=== PATIENT | female | born 1990 | race Caucasian/White ===

== ENCOUNTER 2019-09-25 20:52 | Outpatient (CLI) | payer MEDICAID, SELFPAY ==
[2019-09-25] VITALS (10 sets, daily range): BP systolic 0–123; BP diastolic 0–73; PULSE 87–112; RESP 16; TEMP 36.7; BMI 29.7
[2019-09-26 00:15] VITALS: BP 118/73; PULSE 83
[2019-09-26 00:34] VITALS: BP 118/73; PULSE 83; RESP 16; TEMP 36.8
== END 2019-09-26 00:34 | disposition home or self-care (01) ==
LOC: OPOB 20:55 → OBGYN 09-26 00:30 → OPOB 09-26 07:37
PROVIDERS: Family Provider Family Medicine; Visit Provider Family Medicine
DX: O26.899 Other specified pregnancy related conditions, unspecified trimester (principal); Z3A.00 Weeks of gestation of pregnancy not specified; R10.9 Unspecified abdominal pain
CPT/HCPCS: 59025; 99211

== ENCOUNTER 2019-10-08 05:32 | Inpatient (IN) | payer MEDICAID, SELFPAY ==
[2019-10-08] VITALS (24 sets, daily range): BP systolic 101–137; BP diastolic 57–105; PULSE 67–122; RESP 16–19; TEMP 36.5–37; O2SAT 96–97; BMI 29.7
[2019-10-08 02:48] LABS: Basophils % 0.4 %; Eosinophils # 0.2 10^3/uL (0.0-0.8); Eosinophils % 2.2 %; Hematocrit 37.3 % (37.0-47.0); Hemoglobin 12.6 g/dL (11.5-15.3); Lymphocytes % 20.3 %; Mean Corpuscular HGB Conc 33.8 g/dL (30.0-36.0); Mean Corpuscular Hemoglobin 29.9 pg (28.0-34.0); Mean Corpuscular Volume 88.4 fL (81-99); Mean Platelet Volume 10.4 fL (7.4-10.4); Monocytes # 0.8 10^3/uL (0.2-0.9); Neutrophils # 6.7 10^3/uL (1.8-7.7); Neutrophils % 68.6 %; Nucleated Red Blood Cells % 0 %; Platelet Count 232 10^3/cmm (130-400); Red Blood Count 4.22 10^6/uL (4.1-5.3); White Blood Count 9.8 10^3/uL (4.0-10.0)
--- NOTE | 2019-10-08 05:56 | PM.DELIVERY ---
 Delivery Note: Date of delivery: 10/08/19 Pre-Delivery Course: This is a 29-year-old G3, P2 at 40 weeks 2 days gestation who had routine care at [facility]. There were no complications during the . labs were unremarkable. GBS was negative. Delivery: The patient presented to labor and delivery in active labor with spontaneous rupture of membranes. There was clear fluid. She did not desire any pain management. Her labor progressed well on its own and she had a normal spontaneous vaginal delivery of a viable female infant weight 3975 g, 8 pounds 12 ounces. Apgars 8 and 9. The infant was delivered over an intact perineum and the mouth and nares were suctioned at delivery. There was a nuchal cord X2 that was reduced upon delivery. Infant was then placed on the mother's chest. The cord was clamped and cut. The placenta was delivered grossly intact and normal to inspection. There was a 1 degree perineal laceration that was very small and hemostatic, patient preferred not to suture. Post-Delivery Status: Mother and were doing well A&P Assessment and plan (1) Intrauterine : Presented to labor and delivery in active labor Status: Acute Code(s): Z34.90 - Encounter for supervision of normal , unspecified, unspecified trimester (2) Normal spontaneous vaginal delivery: Routine care Status: Acute Code(s): O80 - Encounter for full-term uncomplicated delivery Coding Level of Care Code Acute [employer] Manager for Chg Fwd Diagnoses Intrauterine Z34.90 Normal spontaneous vaginal delivery O80
[2019-10-08] MEDS: ketorolac 30 mg/mL INJ IVP (06:07)
--- NOTE | 2019-10-08 09:52 | PC.NURSE ---
Patient ambulated to room 203-2 without difficulty. Patient oriented to and proud parent pack explained. Patient reports her pain is 4/10 currently r/t cramping. Patient reports she does not want any additional medication for pain at this time. Will continue to monitor and follow up as needed.
[2019-10-08] MEDS: prenatal vitamin Capsule 1 CAP PO (09:54)
[2019-10-08] MEDS: docusate sodium 100 mg Capsule PO (09:55)
--- NOTE | 2019-10-08 13:56 | PC.NURSE ---
Patient refused fundal massage and vitals at this time.
--- NOTE | 2019-10-08 13:56 | PC.NURSE ---
Patient refused vital signs at this time.
[2019-10-08 18:37] LABS: Hematocrit 36.1 % (37.0-47.0); Mean Corpuscular HGB Conc 33.2 g/dL (30.0-36.0); Mean Corpuscular Hemoglobin 29.7 pg (28.0-34.0); Mean Corpuscular Volume 89.4 fL (81-99); Platelet Count 221 10^3/cmm (130-400); Red Blood Count 4.04 10^6/uL (4.1-5.3); White Blood Count 11.3 10^3/uL (4.0-10.0)
[2019-10-08] MEDS: benzocaine-menthol 78 gm Canister 1 SPRAY TOPICAL (22:08)
[2019-10-09 05:50] VITALS: BP 106/63; PULSE 102; RESP 16; TEMP 36.9
[2019-10-09 08:52] VITALS: BP 106/71; PULSE 76; RESP 15; TEMP 36.6
[2019-10-09] MEDS: lanolin oint 7 gm 1 APPLIC TOPICAL (08:54)
[2019-10-09] MEDS: prenatal vitamin Capsule 1 CAP PO (08:54)
[2019-10-09] MEDS: docusate sodium 100 mg Capsule PO (08:54)
--- NOTE | 2019-10-09 11:39 | P.DS_ITS ---
Discharge Providers [employer] AIDE TEACHER Date of Admission: 10/08/19 05:32 Date of Discharge: 10/09/19 Attending Provider at Admission: Katlyn Gao MD Attending Provider at Discharge: Katlyn Gao MD Diagnoses at Discharge Discharge Diagnosis (1) Intrauterine : Status: Resolved (2) Normal spontaneous vaginal delivery: Status: Acute Reason for Visit Reason for Visit: Reason For Visit: labor Hospital Course Hospital Course: This is a 29-year-old G3 now P3 who presented to labor and delivery in active labor. She had a normal spontaneous vaginal delivery of a viable female infant. After delivery mother and infant did well. On day #1 she was ambulating, tolerating a regular diet, breast-feeding well and requesting discharge home. Information Peripartum Data: Delivery Method: Vaginal Episiotomy description: None Physical Exam Const: COMMON NORMALS: alert and well nourished GENERAL APPEARANCE: cooperative HENMT: COMMON NORMALS: normocephalic HEAD & SCALP: normocephalic Eye: COMMON NORMALS: PERRL PUPIL: Yes PERRL Resp: COMMON NORMALS: normal respiratory effort and clear to auscultation bilaterally AUSCULTATION: clear to auscultation bilaterally Cardio: COMMON NORMALS: regular rate and regular rhythm RATE: regular rate RHYTHM: regular rhythm GI: COMMON NORMALS: soft to palpation (Fundus firm U- 2) PALPATION: Yes soft (Fundus firm U- 2), No tender, No guarding and No rigid Extremity: GENERAL: No calf tenderness Neuro: SENSORIUM/ORIENTATION: Yes alert Discharge Data Data Completed and Pending: Labs from last 24 hours 10/08/19 18:33 WBC 11.3 H RBC 4.04 L Hgb 12.0 Hct 36.1 L MCV 89.4 MCH 29.7 MCHC 33.2 RDW 14.0 Plt Count 221 MPV 10.0 Vitals: Last Vital Signs Temp 97.9 F 10/09/19 08:52 Pulse 76 10/09/19 08:52 Resp 15 10/09/19 08:52 BP 106/71 10/09/19 08:52 Pulse Ox 96 10/08/19 11:56 Discharge Plan Discharge Patient Disposition: Home, Self-Care Condition: Stable Prescriptions: No Action 28-800 mg-mcg Tablet 1 tab PO DAILY RF: 0 Referrals: Katlyn Gao MD [Family Provider] - 1 month Discharge Diet: Usual diet Activity Restrictions/Additional Instructions: NPV for 6 weeks Discharge Attestations [employer] AIDE TEACHER Time Spent in Discharge Care*: less than 30 min Coding Level of Care Code Acute Manager Interventional for Chg Fwd Diagnoses Intrauterine Z34.90 Normal spontaneous vaginal delivery O80
[2019-10-09 12:02] VITALS: BP 106/71; PULSE 76; RESP 15; TEMP 36.6
== END 2019-10-09 12:35 | disposition home or self-care (01) | DRG 807 ==
LOC: OBGYN 10-09 11:43 → OPOB 10-09 13:47
PROVIDERS: Admitting Provider Family Medicine; Family Provider Family Medicine; Visit Provider Family Medicine
DX: O69.81X0 Labor and delivery complicated by cord around neck, without compression, not applicable or unspecified (principal); Z37.0 Single live birth; Z3A.40 40 weeks gestation of pregnancy; O70.0 First degree perineal laceration during delivery
CPT/HCPCS: 12345; 36415; 59025; 59409; 83986; 85025; 85027; 96375; 99211; J1885

== ENCOUNTER 2022-02-08 03:28 | Inpatient (IN) | payer BC, MEDICAID, SELFPAY ==
[2022-02-08] VITALS (29 sets, daily range): BP systolic 94–135; BP diastolic 59–81; PULSE 59–89; RESP 14–18; TEMP 36.3–36.7; BMI 29.8
[2022-02-08 04:00] LABS: Basophils % 0.4 %; Eosinophils # 0.1 10^3/uL (0.0-0.8); Hematocrit 40.2 % (37.0-47.0); Hemoglobin 13.4 g/dL (11.5-15.3); Lymphocytes # 2.2 10^3/uL (0.8-4.8); Lymphocytes % 22.2 %; Mean Corpuscular HGB Conc 33.3 g/dL (30.0-36.0); Mean Corpuscular Hemoglobin 30.8 pg (28.0-34.0); Mean Corpuscular Volume 92.4 fl (81-99); Mean Platelet Volume 10.4 fL (7.4-10.4); Monocytes # 0.6 10^3/uL (0.2-0.9); Monocytes % 6.4 %; Neutrophils # 6.82 10^3/uL (1.8-7.7); Neutrophils % 69.3 %; Nucleated Red Blood Cells % 0 %; Platelet Count 229 10^3/cmm (130-400); Red Blood Count 4.35 10^6/uL (4.1-5.3); Red Cell Distribution Width 14.1 % (12.1-15.1); White Blood Count 9.9 10^3/uL (4.0-10.0)
[2022-02-08] MEDS: fentaNYL 50 mcg/mL INJ 2mL IVP (04:31)
[2022-02-08] MEDS: dextrose 5%-lactated ringers 1,000 ML 125 ML IV (04:33)
--- NOTE | 2022-02-08 05:24 | P.PCNOB_ITS ---
Delivery Note: Date of delivery: February 08, 2022 Pre-Delivery Course: She had routine care at [facility]. There were no complications during the . Delivery: This is a 31-year-old G4, P3 at 39 weeks 3 days gestation who presented in active labor. She did not desire an epidural. She made rapid change from 7 cm and not ruptured to complete and delivery with in a few minutes time. The infant was delivered by nursing before my arrival at the hospital. The infant was on the mother's chest. I clamped and cut the cord. The placenta was delivered grossly intact and normal to inspection. There was a very small first-degree perineal laceration that was not sutured. Mother and were doing well after delivery. weighed 7 pounds 4 ounces Apgars 7 and 9. Coding Level of Care Code Acute Help Desk Administrator for Amber Bansal
[2022-02-08] MEDS: docusate sodium 100 mg Capsule PO ×2 (08:05→17:37)
[2022-02-08] MEDS: prenatal vitamin Capsule 1 CAP PO (08:05)
[2022-02-08] MEDS: ibuprofen 800 mg tablet PO ×3 (08:05→21:21)
[2022-02-08 17:34] LABS: Hemoglobin 12.4 g/dL (11.5-15.3); Mean Corpuscular HGB Conc 32.6 g/dL (30.0-36.0); Mean Corpuscular Hemoglobin 30.7 pg (28.0-34.0); Mean Corpuscular Volume 94.1 fl (81-99); Mean Platelet Volume 10.1 fL (7.4-10.4); Platelet Count 213 10^3/cmm (130-400); Red Blood Count 4.04 10^6/uL (4.1-5.3); Red Cell Distribution Width 14.1 % (12.1-15.1); White Blood Count 10.8 10^3/uL (4.0-10.0)
[2022-02-09] MEDS: acetaminophen 325 mg Tablet 650 MG PO ×2 (00:33→07:24)
[2022-02-09 04:09] VITALS: BP 106/70; PULSE 68; RESP 17; TEMP 36.5
[2022-02-09] MEDS: prenatal vitamin Capsule 1 CAP PO (09:05)
[2022-02-09] MEDS: ibuprofen 800 mg tablet PO (09:05)
[2022-02-09] MEDS: docusate sodium 100 mg Capsule PO (09:05)
[2022-02-09 10:30] VITALS: BP 117/80; PULSE 80; RESP 18; TEMP 36.6
--- NOTE | 2022-02-09 11:22 | P.DS_ITS ---
Discharge Providers Date of Admission: 02/08/22 03:28 Date of Discharge: February 09, 2022 Attending Provider at Admission: Katlyn Gao MD Attending Provider at Discharge: Katlyn Gao MD Reason for Visit Reason for Visit: CONTRACTIONS Hospital Course Hospital Course This is a 31-year-old G4 now P4 who was admitted in active labor. She had a precipitous normal spontaneous vaginal delivery of a viable female infant. On day #1 mother and were doing well. Mother was ambulating, tolerating a regular diet, had moderate cramping with breast-feeding but average vaginal bleeding. She was comfortable with discharge home. Physical Exam Narrative: Alert and oriented, sitting up in bed, abdomen is soft and nontender, fundus is firm, there is trace nonpitting pedal edema, no calf tenderness Discharge Data Studies Completed and Pending Laboratory Results WBC 10.8 10^3/uL (4.0-10.0) H 02/08/22 17:25 RBC 4.04 10^6/uL (4.1-5.3) L 02/08/22 17:25 Hgb 12.4 g/dL (11.5-15.3) 02/08/22 17:25 Hct 38.0 % (37.0-47.0) 02/08/22 17:25 MCV 94.1 fl (81-99) 02/08/22 17:25 MCH 30.7 pg (28.0-34.0) 02/08/22 17:25 MCHC 32.6 g/dL (30.0-36.0) 02/08/22 17:25 RDW 14.1 % (12.1-15.1) 02/08/22 17:25 Plt Count 213 10^3/cmm (130-400) 02/08/22 17:25 MPV 10.1 fL (7.4-10.4) 02/08/22 17:25 Neut % (Auto) 69.3 % 02/08/22 03:45 Lymph % (Auto) 22.2 % 02/08/22 03:45 [place] % (Auto) 6.4 % 02/08/22 03:45 Eos % (Auto) 1.0 % 02/08/22 03:45 Baso % (Auto) 0.4 % 02/08/22 03:45 Neut # (Auto) 6.82 10^3/uL (1.8-7.7) 02/08/22 03:45 Lymph # (Auto) 2.2 10^3/uL (0.8-4.8) 02/08/22 03:45 [place] # (Auto) 0.6 10^3/uL (0.2-0.9) 02/08/22 03:45 Eos # (Auto) 0.1 10^3/uL (0.0-0.8) 02/08/22 03:45 Baso # (Auto) 0.0 10^3/uL (0.0-0.1) 02/08/22 03:45 Nucleated RBC % (auto) 0 % 02/08/22 03:45 Nucleated RBCs # 0.0 /100WBC 02/08/22 03:45 Vitals Last Vital Signs Temp 97.9 F 02/09/22 10:30 Pulse 80 02/09/22 10:30 Resp 18 02/09/22 10:30 BP 117/80 02/09/22 10:30 Discharge Plan Discharge Patient Disposition: Home Condition: Stable Prescriptions: New ibuprofen 800 mg Tablet 800 mg PO TID PRN (Reason: Abdominal Discomfort) Qty: 40 0RF Continued 28-800 mg-mcg Tablet 1 tab PO DAILY 0RF loperamide 2 mg Capsule 2 mg PO QID 0RF Discharge Orders: Discharge Order (Routine); Ordered 02/09/22 Ordered By: Katlyn Gao Referrals: Katlyn Gao MD [Physician] - 1 month Discharge Diet: Usual diet Discharge Activity: Limit activity as instructed Patient Instructions: Depression (DC), Bleeding (DC), Preeclampsia and Eclampsia After Delivery (GEN), OB Discharge Report, OB Food/Drug Interaction Guide, Opioid Safety, OB Home Care, OB Proud Parent Packet, OB Vaginal Deliveries Discharge Attestations Time Spent in Discharge Care*: less than 30 min Quality Metrics Clinical Quality Measures [ No reported AMI, CVA or VTE this stay] Coding Level of Care Code Acute Chg FW DC note
[2022-02-09 12:00] VITALS: BP 108/66; PULSE 88; RESP 18; TEMP 36.6
== END 2022-02-09 12:25 | disposition home or self-care (01) | DRG 807 ==
LOC: OPOB 03:28 → OBGYN 03:28
PROVIDERS: Admitting Provider Family Medicine; Visit Provider Family Medicine
DX: O62.3 Precipitate labor (principal); Z37.0 Single live birth; Z3A.39 39 weeks gestation of pregnancy
CPT/HCPCS: 36415; 59025; 59409; 83986; 85025; 85027; 96374; 99211; J3010

== ENCOUNTER 2022-05-29 07:00 | Outpatient (CLI) | payer MEDICAID, SELFPAY ==
--- NOTE | 2022-05-29 | US_ITS ---
WS: [id number] Right breast ultrasound, 05/29/2022 Clinical Data: RIGHT BREAST LUMP the patient is breast-feeding for the last 3 months Comparison: None. Findings: At the 11:00 position 3 cm from the nipple there is a nodule measuring 0.41 x 0.78 x 0.94 cm which hartmann s a well-defined smooth border. It is mixed echotexture. At the 12:00 position 3 cm from the nipple t here is another well-defined nodule measuring 0.61 x 0.75 x 0.9 cm and has a mixed echotexture. Both these nodules have a benign appearance. There are numerous dilated mammary ducts throughout the breas t which is a typical finding for a breast producing milk. US/US breast RT limited* [id number] Impression: 1. 2 small nodules in the right breast, one at 11:00 and and the other at 12:00 . 2. Recommend repeat right breast ultrasound in 3 months. BIRADS: 3-Probably Benign FOLLOW UP: See Report
== END 2022-05-29 07:01 | disposition home or self-care (01) ==
LOC: RAD 07:04
PROVIDERS: PCP Family Medicine; Visit Provider Family Medicine
DX: N63.15 Unspecified lump in the right breast, overlapping quadrants (principal); N63.11 Unspecified lump in the right breast, upper outer quadrant
CPT/HCPCS: 76642

== ENCOUNTER 2022-09-25 08:41 | Outpatient (CLI) | payer SELFPAY ==
--- NOTE | 2022-09-25 | US_ITS ---
WS: [id number] ULTRASOUND RIGHT BREAST HISTORY: 3 MONTH FOLLOW UP COMPARISON: 05/29/2022 TECHNIQUE: 2-D and Doppler. Hypoechoic nodule at 11:00 is no longer visualized. Normal fibroglandular asymmetries. The hypoechoic area at 12:00 previous the described is elongated. This is probably inspissated material within the duct. This area is less conspicuous than on the prior study. No mass or increased vascularity. US/US breast RT limited* [id number] IMPRESSION: BI-RADS: 2-Benign FOLLOW-UP: See Report 1. Previously described hypoechoic nodule 11:00 is no longer visualized. 2. The changes at 12:00 are most likely inspissated material within a duct. No mass. No abscess. 3. No additional imaging follow-up is necessary unless there is a change in pr esentation.
== END 2022-09-25 08:42 | disposition home or self-care (01) ==
LOC: RAD 08:44
PROVIDERS: PCP Family Medicine; Visit Provider Family Medicine
DX: N63.10 Unspecified lump in the right breast, unspecified quadrant (principal)
CPT/HCPCS: 76642

== ENCOUNTER → 2024-01-08 15:28 | Outpatient (BNVA) | payer BC, MEDICAID, SELFPAY | PROVIDERS: PCP Family Medicine; Visit Provider Nurse Practitioner Women's Health | DX: N92.6 Irregular menstruation, unspecified (principal) | CPT/HCPCS: 82670; 83001; 83036; 83525; 84146; 84403; 84439; 84443; 84481 ==

== ENCOUNTER 2024-02-22 15:48 | Outpatient (CLI) | payer BC, MEDICAID, SELFPAY ==
[2024-02-22 23:10] LABS: Free T4 Free Thyroxine 1.19 ng/dL (0.82-1.77)
== END 2024-02-22 15:49 | disposition home or self-care (01) ==
LOC: LAB 15:49
PROVIDERS: Visit Provider Internal Medicine
DX: E03.9 Hypothyroidism, unspecified (principal)
CPT/HCPCS: 84439

== ENCOUNTER 2024-04-07 11:50 | Outpatient (CLI) | payer BC, MEDICAID, SELFPAY ==
[2024-04-07 12:51] LABS: Free T4 Free Thyroxine 1.27 ng/dL (0.82-1.77); Thyroid Stimulating Hormone 0.41 uIU/mL (0.27-4.20)
[2024-04-08 09:24] LABS: Insulin ( Reference Lab Test) 44.8 uIU/mL
== END 2024-04-07 11:51 | disposition home or self-care (01) ==
LOC: LAB 11:51
PROVIDERS: Visit Provider Internal Medicine
DX: E03.9 Hypothyroidism, unspecified (principal); E88.819 Insulin resistance, unspecified
CPT/HCPCS: 36415; 83525; 84439; 84443; 86376; 86800

== ENCOUNTER 2024-04-29 15:13 | Outpatient (CLI) | payer BC, MEDICAID, SELFPAY ==
--- NOTE | 2024-04-29 15:00 | USR_ITS ---
PROCEDURE INFORMATION: Exam: US Soft Tissue Head and Neck, Thyroid Exam date and time: 04/29/2024 3:24 PM Age: 33 years old Clinical indication: Mass, lump, or swelling in neck; Anterior; Additional info: Feeling a knot in her throat TECHNIQUE: Imaging protocol: Real-time ultrasound scan of the neck with image documentation. Exam focused on the thyroid. COMPARISON: No relevant prior studies available. FINDINGS: Right thyroid lobe: The right thyroid lobe measures 2.8 x 1.1 x 1.2 cm, 1.8 cc. The right thyroid lobe is diffusely heterogeneous. Unremarkable vascular flow. Left thyroid lobe: Measures 1.4 x 1.2 x 3.7 cm, 3 cc. Diffusely heterogeneous echogenicity. Unremarkable vascular flow. Isthmus: Measures 0.2 cm in thickness. Unremarkable echogenicity. Salivary glands: Submandibular glands are unremarkable. Lymph nodes: No enlarged lymph nodes. US/US thyroid [id number] IMPRESSION: Diffusely heterogeneous thyroid gland, which is nonspecific, but may be seen in the setting of known Matt's thyroiditis. No discrete measurable nodule.
== END 2024-04-29 15:14 | disposition home or self-care (01) ==
LOC: RAD 15:13
PROVIDERS: Visit Provider Internal Medicine
DX: R94.6 Abnormal results of thyroid function studies (principal); E03.9 Hypothyroidism, unspecified; R79.89 Other specified abnormal findings of blood chemistry; E07.89 Other specified disorders of thyroid
CPT/HCPCS: 76536

== ENCOUNTER 2024-10-03 14:04 | Outpatient (CLI) | payer BC, MEDICAID, SELFPAY ==
[2024-10-03 14:48] LABS: Free T4 Free Thyroxine 1.19 ng/dL (0.82-1.77); Thyroid Stimulating Hormone 6.81 uIU/mL (0.27-4.20)
[2024-10-04 07:05] LABS: Insulin ( Reference Lab Test) 25.1 uIU/mL
== END 2024-10-03 14:05 | disposition home or self-care (01) ==
LOC: LAB 14:05
PROVIDERS: Visit Provider Internal Medicine
DX: E03.9 Hypothyroidism, unspecified (principal); E88.819 Insulin resistance, unspecified; E28.2 Polycystic ovarian syndrome
CPT/HCPCS: 36415; 83525; 84439; 84443

== ENCOUNTER 2024-11-29 13:41 | Outpatient (CLI) | payer BC, MEDICAID, SELFPAY ==
[2024-11-29 15:02] LABS: Basophils # 0.1 10^3/uL (0.0-0.1); Basophils % 0.9 %; Eosinophils # 0.4 10^3/uL (0.0-0.8); Eosinophils % 5.7 %; Hematocrit 41.6 % (36-47); Lymphocytes # 1.7 10^3/uL (0.8-4.8); Lymphocytes % 26.3 %; Mean Corpuscular HGB Conc 32.7 g/dL (30-55); Mean Corpuscular Hemoglobin 29.4 pg (27-33); Mean Corpuscular Volume 89.8 fl (85-98); Monocytes # 0.5 10^3/uL (0.2-0.9); Monocytes % 7.6 %; Neutrophils # 3.77 10^3/uL (1.8-7.7); Neutrophils % 59.3 %; Nucleated Red Blood Cells % 0 %; Platelet Count 291 10^3/cmm (157-399); Red Blood Count 4.63 10^6/uL (3.85-5.65); Red Cell Distribution Width 13.2 % (12.1-15.1); White Blood Count 6.35 10^3/uL (3.29-11.43)
[2024-11-29 15:41] LABS: Iron 101 ug/dL (37-145); Percent Saturation 29.5 % (20-50); Thyroid Stimulating Hormone 1.21 uIU/mL (0.27-4.20); Total Iron Binding Capacity 342 mcg/dl; Unsaturated Iron Binding 241 ug/dL (112-347)
[2024-11-29 16:13] LABS: Free T4 Free Thyroxine 1.39 ng/dL (0.82-1.77)
== END 2024-11-29 13:42 | disposition home or self-care (01) ==
LOC: LAB 13:42
PROVIDERS: Visit Provider Internal Medicine
DX: E03.9 Hypothyroidism, unspecified (principal); E88.819 Insulin resistance, unspecified; E28.2 Polycystic ovarian syndrome; R94.6 Abnormal results of thyroid function studies; E06.3 Autoimmune thyroiditis
CPT/HCPCS: 36415; 83540; 83550; 84439; 84443; 85025